=== PATIENT | male | born 1980 | race Caucasian/White ===

== ENCOUNTER 2017-10-09 20:48 | Emergency (ER) | payer SELFPAY ==
[2017-10-09] MEDS ORDERED: Albuterol/Ipratropium 3.0-0.5 MG/3 ML Neb Soln NEB ONE (20:57)
--- NOTE | 2017-10-09 20:58 | EDM.PDOC ---
ED HPI GENERAL MEDICAL PROBLEM - General Chief Complaint: Respiratory Problem Stated Complaint: COUGH/CONGESTION/CHEST PAIN Time Seen by Provider: 10/09/17 20:58 Source of Information: Reports: Patient - History of Present Illness INITIAL COMMENTS - FREE TEXT/NARRATIVE: HISTORY AND PHYSICAL: History of present illness: [Patient has sinus congestion cough increasing over the last week, he had a bloody nose last night that also concerns him Intermittent fever no chills sweats no chest pain shortness breath headache dizziness or palpitation no bowel or urine symptoms ] Review of systems: As per history of present illness and below otherwise all systems reviewed and negative. Past medical history: As per history of present illness and as reviewed below otherwise noncontributory. Surgical history: As per history of present illness and as reviewed below otherwise noncontributory. Social history: No reported history of drug or alcohol abuse. Family history: As per history of present illness and as reviewed below otherwise noncontributory. Physical exam: HEENT: Atraumatic, normocephalic, pupils reactive, negative for conjunctival pallor or scleral icterus, mucous membranes moist, throat clear, neck supple, nontender, trachea midline. Sinus pain right greater than left boggy mucosa copious nasal discharge on the right with inflamed mucosa of the nares no meningeal sign Lungs: Clear to auscultation, breath sounds equal bilaterally, chest nontender. Heart: S1S2, regular, negative for clicks, rubs, or JVD. Abdomen: Soft, nondistended, nontender. Negative for masses or hepatosplenomegaly. Negative for costovertebral tenderness. Pelvis: Stable nontender. Genitourinary: Deferred. Rectal: Deferred. Extremities: Atraumatic, negative for cords or calf pain. Neurovascular unremarkable. Neuro: Awake, alert, oriented. Cranial nerves II through XII unremarkable. Cerebellum unremarkable. Motor and sensory unremarkable throughout. Exam nonfocal. Diagnostics: [Chest 2 views Influenza ] Therapeutics: [Solu-Medrol 125 mg IM DuoNeb Levaquin 500 by mouth daily #10 no refill [id number] symptomatic therapy discuss ] Impression: [Acute bronchitis/sinusitis Definitive disposition and diagnosis as appropriate pending reevaluation and review of above. chest Pain Score (Numeric/FACES): 5 - Related Data Allergies Allergy/AdvReac Type Severity Reaction Status Date / Time No Known Allergies Allergy Verified 10/09/17 21:05 Home Meds: Home Meds . [No Known Home Meds] 10/09/17 [History] ED ROS GENERAL - Review of Systems Review Of Systems: ROS reveals no pertinent complaints other than HPI. ED EXAM, GENERAL - Physical Exam Exam: See Below Course - Vital Signs Last Recorded V/S: Last Vital Signs Temp 98.1 F 10/09/17 21:05 Pulse 67 10/09/17 21:05 Resp 18 10/09/17 21:05 BP 121/40 L 10/09/17 21:05 Pulse Ox 98 10/09/17 21:05 - Orders/Labs/Meds Orders: Active Orders 24 hr Category Date Time Status RT Aerosol Therapy [RC] ASDIRECTED Care 10/09/17 20:57 Active Chest 2V [CR] Stat Exams 10/09/17 20:57 Taken Meds: Medications Discontinued Medications Generic Name Dose Route Start Last Admin Trade Name Freq PRN Reason Stop Dose Admin Albuterol/Ipratropium 3 ml 10/09/17 20:57 10/09/17 21:12 Duoneb 3.0-0.5 Mg/3 Ml NEB 10/09/17 20:58 3 ml ONETIME ONE Administration Departure - Departure Time of Disposition: 21:50 Disposition: Home, Self-Care 01 Condition: Good Clinical Impression: Sinusitis, Bronchitis - Discharge Information Referrals: PCP,None [Primary Care Provider] - Forms: ED Department Discharge Additional Instructions: The following information is given to patients seen in the emergency department who are being discharged to home. This information is to outline your options for follow-up care. We provide all patients seen in our emergency department with a follow-up referral. The need for follow-up, as well as the timing and circumstances, are variable depending upon the specifics of your emergency department visit. If you don't have a primary care physician on staff, we will provide you with a referral. We always advise you to contact your personal physician following an emergency department visit to inform them of the circumstance of the visit and for follow-up with them and/or the need for any referrals to a consulting specialist. The emergency department will also refer you to a specialist when appropriate. This referral assures that you have the opportunity for follow-up care with a specialist. All of these measure are taken in an effort to provide you with optimal care, which includes your follow-up. Under all circumstances we always encourage you to contact your private physician who remains a resource for coordinating your care. When calling for follow-up care, please make the office aware that this follow-up is from your recent emergency room visit. If for any reason you are refused follow-up, please contact the [facility] emergency department at and asked to speak to the emergency department charge nurse. - My Orders Last 24 Hours: My Active Orders 10/09/17 20:57 RT Aerosol Therapy [RC] ASDIRECTED Chest 2V [CR] Stat - Assessment/Plan Last 24 Hours: My Active Orders 10/09/17 20:57 RT Aerosol Therapy [RC] ASDIRECTED Chest 2V [CR] Stat
[2017-10-09] MEDS ORDERED: Levofloxacin 500 MG Tab PO ONE (21:53)
--- NOTE | 2017-10-10 12:55 | CR ---
EXAM DATE: 10/09/17 PATIENT'S AGE: 36 Patient: ALONDRA BEAULIEU Facility: [place], [place] Site . Site : [id number] Study: XRay Chest [id number]/5/2018 9:42:52 PM Ordering Physician: Shaniqua Dow Final Report: HISTORY: Cough x3 weeks. FINDINGS: PA and lateral chest radiographs demonstrate a normal cardiac silhouette. Pulmonary vasculature is free of cephalization. No lobar consolidation or pleural effusion is seen. Bony structures normal. IMPRESSION: No acute cardiopulmonary disease or infiltrate. Dictated by Kia Pak MD @ 10/09/2017 9:44:23 PM Dictated by: Kia Pak MD @ 10/09/2017 21:44:51 (Electronic Signature) Report Signed by Proxy. [facility]
== END 2017-10-09 22:05 | disposition home or self-care (01) ==
LOC: MW.ED 20:48
DX: J20.9 Acute bronchitis, unspecified (principal); J32.9 Chronic sinusitis, unspecified
CPT/HCPCS: 71046; 87804; 94640; 99284; A9270; 99283

== ENCOUNTER 2018-05-01 17:27 | Emergency (ER) | payer SELFPAY ==
[2018-05-01] MEDS ORDERED: Lidocaine 2% Viscous Solution 15 ML Cup PO ONE (17:54)
--- NOTE | 2018-05-01 17:54 | EDM.PDOC ---
ED HPI GENERAL MEDICAL PROBLEM - General Chief Complaint: ENT Problem Stated Complaint: PT HAS SORE THROAT Time Seen by Provider: 05/01/18 17:37 - History of Present Illness INITIAL COMMENTS - FREE TEXT/NARRATIVE: HISTORY AND PHYSICAL: History of present illness: The patient is a 37-year-old male who presents with 2 days of sore throat and difficulty swallowing because of discomfort. He has not had a fever but he had a slight cough which is now improved. He said the pain was radiating to his right ear to nursing but did not say that to me but currently he has no ear pain. Has no sinus pain or congestion no shortness of breath or chest pain and no abdominal complaints. He's had no vomiting or diarrhea. The patient has not been taking anything [id number] for the pain and has no ill contacts. Review of systems: As per history of present illness and below otherwise all systems reviewed and negative. Past medical history: As per history of present illness and as reviewed below otherwise noncontributory. Surgical history: As per history of present illness and as reviewed below otherwise noncontributory. Social history: No reported history of drug or alcohol abuse. Family history: As per history of present illness and as reviewed below otherwise noncontributory. Physical exam: General: Well-developed well-nourished man who is nontoxic and speaks softly but is not hoarse or muffled. He is not drooling. Vital signs are noted by me HEENT: Atraumatic, normocephalic, pupils reactive, negative for conjunctival pallor or scleral icterus, mucous membranes moist, throat clear of exudates but there is some posterior oral pharyngeal and tonsillar crypt erythema, uvula is midline,, neck supple, nontender, trachea midline. There is some minimal anterior cervical adenopathy which is tender but no posterior adenopathy and no nuchal rigidity Lungs: Clear to auscultation, breath sounds equal bilaterally, chest nontender. No wheezing or stridor Heart: S1S2, regular rate and rhythm no overt murmurs Abdomen: Soft, nondistended, nontender. NABS Pelvis: Deferred Genitourinary: Deferred. Rectal: Deferred. Extremities: Atraumatic, range of motion. Neurovascular unremarkable. Neuro: Awake, alert, oriented. Cranial nerves II through XII unremarkable. Cerebellum unremarkable. Motor and sensory unremarkable throughout. Exam nonfocal. Diagnostics: Rapid strep Therapeutics: Viscous lidocaine Impression: Strep pharyngitis Definitive disposition and diagnosis as appropriate pending reevaluation and review of above. Throat Pain Score (Numeric/FACES): 9 - Related Data Allergies Allergy/AdvReac Type Severity Reaction Status Date / Time No Known Allergies Allergy Verified 05/01/18 17:37 Home Meds: Home Meds . [No Known Home Meds] 10/09/17 [History] Past Medical History - Past Health History Medical/Surgical History: Denies Medical/Surgical History - Infectious Disease History Infectious Disease History: Reports: Chicken Pox Social & Family History - Family History Family Medical History: Noncontributory - Tobacco Use Smoking Status *Q: Current Every Day Smoker Years of Tobacco use: 2 Packs/Tins Daily: 0.5 - Caffeine Use Caffeine Use: Reports: Coffee, Energy Drinks, Soda - Alcohol Use Days Per Week of Alcohol Use: 2 Number of Drinks Per Day: 2 Total Drinks Per Week: 4 - Recreational Drug Use Recreational Drug Use: No ED ROS GENERAL - Review of Systems Review Of Systems: ROS reveals no pertinent complaints other than HPI. ED EXAM, GENERAL - Physical Exam Exam: See Below (See dictation) Course - Vital Signs Last Recorded V/S: Last Vital Signs Temp 36.5 C 05/01/18 17:38 Pulse 95 05/01/18 17:38 Resp 15 05/01/18 17:38 BP 127/70 05/01/18 17:38 Pulse Ox 98 05/01/18 17:38 - Orders/Labs/Meds Orders: Active Orders 24 hr Category Date Time Status STREP SCRN A RAPID W CULT CONF [RM] Stat Lab 05/01/18 17:55 Ordered Meds: Medications Discontinued Medications Generic Name Dose Route Start Last Admin Trade Name Freq PRN Reason Stop Dose Admin Lidocaine HCl 15 ml 05/01/18 17:54 05/01/18 18:06 Xylocaine 2% Viscous PO 05/01/18 17:55 15 ml ONETIME ONE Administration Departure - Departure Time of Disposition: 18:13 Disposition: Home, Self-Care 01 Condition: Good Clinical Impression: Strep pharyngitis - Discharge Information Referrals: PCP,None [Primary Care Provider] - Forms: ED Department Discharge Additional Instructions: The following information is given to patients seen in the emergency department who are being discharged to home. This information is to outline your options for follow-up care. We provide all patients seen in our emergency department with a follow-up referral. The need for follow-up, as well as the timing and circumstances, are variable depending upon the specifics of your emergency department visit. If you don't have a primary care physician on staff, we will provide you with a referral. We always advise you to contact your personal physician following an emergency department visit to inform them of the circumstance of the visit and for follow-up with them and/or the need for any referrals to a consulting specialist. The emergency department will also refer you to a specialist when appropriate. This referral assures that you have the opportunity for followup care with a specialist. All of these measure are taken in an effort to provide you with optimal care, which includes your followup. Under all circumstances we always encourage you to contact your private physician who remains a resource for coordinating your care. When calling for followup care, please make the office aware that this follow-up is from your recent emergency room visit. If for any reason you are refused follow-up, please contact the [facility] emergency department at and ask to speak to the emergency department charge nurse. [facility] Primary care- Internal Medicine and Family [address] [id number] Push hydration and use [id number] Tylenol or ibuprofen for pain or fevers. Please use the viscous lidocaine you have been given for pain by gargling and swallowing/spitting to help numb your throat so that you can eat or drink. Take small sips of fluids and popsicles as well as soft bites of food. Please take antibiotics you have been prescribed until they are finished Please call and schedule a follow-up appointment in our clinic or with your provider in the next few days for reevaluation and further care and return to ER as needed and as discussed - My Orders Last 24 Hours: My Active Orders 05/01/18 17:55 STREP SCRN A RAPID W CULT CONF [RM] Stat - Assessment/Plan Last 24 Hours: My Active Orders 05/01/18 17:55 STREP SCRN A RAPID W CULT CONF [RM] Stat
== END 2018-05-01 18:25 | disposition home or self-care (01) ==
LOC: MW.ED 17:27
DX: J02.0 Streptococcal pharyngitis (principal); F17.210 Nicotine dependence, cigarettes, uncomplicated
CPT/HCPCS: 87880; 99283; A9270